=== PATIENT | female | born 1955 | race African-American/Black ===

== ENCOUNTER 2016-10-17 10:09 | Outpatient (CLI) | payer BC ==
--- NOTE | 2016-10-18 07:47 | Mammography Report ---
Bilateral mammogram: Compared to 09/22/15. CAD study utilized. Findings: Bilateral stable breast implants. No microcalcifications mass at the adjacent breast parenchyma. Predominantly fatty breast parenchyma. Impression: Benign findings. Annual followup recommended. BI-RADS CATEGORY: 2 = Benign ACR BI-RADS MAMMOGRAPHIC CODES: 0 = Needs additional imaging evaluation; 1 = Negative; 2 = Benign; 3 = Probably benign; 4 = Suspicious; 5 = Malignant; 6 = Known biopsy-proven malignancy COMMENT: 1. Dense breast tissue, i.e., adenosis, fibrocystic changes, etc., may obscure an underlying neoplasm. 2. Approximately 10% of cancers are not detected with mammography. 3. A negative mammography report should not delay biopsy if a clinically suspicious mass is present.
== END 2016-10-17 10:10 | disposition home or self-care (01) ==
LOC: MAMMO 10:09
PROVIDERS: ATTEND Obstetrics & Gynecology
DX: Z12.31 Encounter for screening mammogram for malignant neoplasm of breast (principal); Z98.82 Breast implant status
CPT/HCPCS: 77067; G0202

== ENCOUNTER 2018-10-23 08:45 | Outpatient (CLI) | payer MEDICARE, OTHER ==
--- NOTE | 2018-10-23 12:02 | Mammography Report ---
BILATERAL DIGITAL AUGMENTED SCREENING MAMMOGRAM with CAD: 10/23/18 08:45:00 CLINICAL: Routine screening. COMPARISON:10/17/16 FINDINGS: Screening views with and without implant displacement demonstrate heterogeneously dense breasts, which may obscures small masses and the breast density is sufficient to limit the sensitivity of mammography. A left asymmetry on the implant displaced CC view requires additional imaging. No architectural distortion or suspicious calcifications. The right breast is negative. Intact subpectoral implants. IMPRESSION: Left asymmetry requiring additional imaging. BI-RADS CATEGORY: 0--Needs Additional Imaging RECOMMENDATION: Recall for a left implant displaced CC spot compression view and an implant displaced lateralmedial view and left breast ultrasound if needed. COMMENT: 1. Dense breast tissue, i.e., adenosis, fibrocystic changes, etc., may obscure an underlying neoplasm. 2. Approximately 10% of cancers are not detected with mammography. 3. A negative mammography report should not delay biopsy if a clinically suspicious mass is present. COMMENT: Patient follow-up letters are generated via our [employer] application.
== END 2018-10-23 08:46 | disposition home or self-care (01) ==
LOC: MAMMO 08:45
PROVIDERS: ATTEND Obstetrics & Gynecology
DX: Z12.31 Encounter for screening mammogram for malignant neoplasm of breast (principal)
CPT/HCPCS: 77067

== ENCOUNTER 2018-11-27 08:13 | Outpatient (CLI) | payer MEDICARE ==
--- NOTE | 2018-11-27 11:49 | Mammography Report ---
LEFT DIGITAL DIAGNOSTIC MAMMOGRAM and LEFT BREAST ULTRASOUND: 11/27/18 08:13:00 CLINICAL: Recalled for asymmetry. COMPARISON:10/23/18 screening FINDINGS: Implant displaced LM and spot compression CC views were obtained. Near-complete effacement of asymmetry on the spot view. The lateral view is negative. Ultrasound of the left breast (including all four quadrants and the retroareolar area) was performed and demonstrated normal fibroglandular structures and an intact breast implant. No mass, cyst or shadowing. IMPRESSION: No mammographic evidence of malignancy and negative left breast ultrasound. BI-RADS CATEGORY: 1 -- Negative RECOMMENDATION: Routine mammographic screening in one year. COMMENT: 1. Dense breast tissue, i.e., adenosis, fibrocystic changes, etc., may obscure an underlying neoplasm. 2. Approximately 10% of cancers are not detected with mammography. 3. A negative mammography report should not delay biopsy if a clinically suspicious mass is present. COMMENT: Patient follow-up letters are generated via our [employer] application.
== END 2018-11-27 08:14 | disposition home or self-care (01) ==
LOC: MAMMO 08:13
PROVIDERS: ATTEND Obstetrics & Gynecology
DX: R92.8 Other abnormal and inconclusive findings on diagnostic imaging of breast (principal)

== ENCOUNTER 2019-10-27 11:11 | Outpatient (CLI) | payer MEDICARE ==
--- NOTE | 2019-10-27 14:08 | Mammography Report ---
DIGITAL SCREENING MAMMOGRAM WITH CAD, 10/27/2019 INDICATION: Routine screening mammography. TECHNIQUE: Digital bilateral 2D mammography was obtained in the craniocaudal and mediolateral obliq ue projections without and with implant displacement. This examination was interpreted with the benef it of Computer-Aided Detection analysis. COMPARISON: 11/27/2018 and 10/23/2018 FINDINGS: Breast Density: The breasts are heterogeneously dense, which may obscure small masses. There is no evidence of dominant mass, suspicious calcifications or architectural distortion in eithe r breast. Bilateral subpectoral implants in place. IMPRESSION: No mammographic evidence of malignancy. Follow up recommendation: Routine yearly BI-RADS Category 2: Benign. A "normal" or negative report should not discourage follow up or biopsy of a clinically significant f inding. A written summary of these findings will be mailed to the patient. The patient will be entered into a mammography reporting system which will generate a reminder letter for the patient's next appointmen t at the appropriate interval. The [employer] recommends yearly mammograms starting at age 40 and continuing as l leslie as a woman is in good health. Breast MRI is recommended for women with an approximate 20-25% or greater lifetime risk of breast cancer, including women with a strong family history of breast or ova justice cancer or who have been treated for Hodgkin's disease. Signer Name: Lamont Marvin MD Signed: 10/27/2019 2:04 PM Workstation Name: [id number]
== END 2019-10-27 11:12 | disposition home or self-care (01) ==
LOC: MAMMO 11:11
PROVIDERS: ATTEND Obstetrics & Gynecology
DX: Z12.31 Encounter for screening mammogram for malignant neoplasm of breast (principal)
CPT/HCPCS: 77067

== ENCOUNTER 2020-04-19 09:23 | Outpatient (CLI) | payer MEDICARE ==
--- NOTE | 2020-04-19 12:06 | Mammography Report ---
BONE DEXA CLINICAL: Postmenopausal osteopenia. TECHNIQUE: 2 site bone DEXA performed on an Hologic scanner. FINDINGS: The average BMD of the lumbar spine L1-L4 is 0.812 g/cm squared with a T score of -2.1 and a Z score of -0.2. The average total BMD of the left hip is 0.736 g/cm squared with a T score of -1.7and a Z score of -0 .4. IMPRESSION: 1. WHO classification: Osteopenia based upon spine measurements. Definitions: BMD equal bone mineral density T score = BMD related to peak bone mass of young adult ([place] expressed an standard deviation) Z score = age-matched BMD expressed in SD World health organization (WHO) diagnostic criteria Normal T score greater than equal to 1 standard deviation Osteopenia T score between -1 and -2.4 standard deviation Osteoporosis T score -2.5 standard deviation or below. Note: BMD is not the only risk factor for fracture; also consider factors such as the patient's age, risk of falling, previous osteoporotic fracture, family history of osteoporotic fractures, current sm oker and low body weight. Z scores are not calculated if greater than 80 years of age. Signer Name: Darell Parker MD Signed: 04/19/2020 12:05 PM Workstation Name: [id number]
== END 2020-04-19 09:24 | disposition home or self-care (01) ==
LOC: MAMMO 09:23
PROVIDERS: ATTEND Obstetrics & Gynecology
DX: Z13.820 Encounter for screening for osteoporosis (principal); M81.0 Age-related osteoporosis without current pathological fracture; N95.1 Menopausal and female climacteric states
CPT/HCPCS: 77080

== ENCOUNTER 2021-02-02 09:33 | Outpatient (CLI) | payer MEDICARE | END 2021-02-02 09:34 | disposition home or self-care (01) | LOC: MAMMO 09:33 | PROVIDERS: ATTEND Obstetrics & Gynecology | DX: Z12.31 Encounter for screening mammogram for malignant neoplasm of breast (principal) | CPT/HCPCS: 77067 ==

== ENCOUNTER 2021-04-30 04:34 | Emergency (ER) | payer MEDICARE ==
[2021-04-30 04:48] VITALS: BP 111/66
--- NOTE | 2021-04-30 07:21 | Emergency Department Report ---
ED Abdominal Pain HPI - General Chief Complaint: Abdominal Pain Stated Complaint: IRREGULAR BOWL MOVEMENT X2 DAYS Time Seen by Provider: 04/30/21 06:42 Source: EMS, certified court/medical interpreter Mode of arrival: Stretcher Limitations: Language Barrier - History of Present Illness Initial Comments: Patient presents with abdominal pain and constipation. For 3 days, she has not been able to have a bowel movement. Family came in today because of this. She has had normal urination. She has the feeling that she needs to have a bowel movement and simply cannot. She reports abdominal cramps associated with this. The cramping is left lower quadrant in nature. There has been no reported fevers or chills. She has had no cough or congestion. There is no history of r ecent travel or trauma. Patient has had no prior symptoms of this nature. She did have a prior surgery secondary to ulcer disease. She does not know if that is contributing. Patient has not noticed blood in the stools leading up to this event. Severity scale (0 -10): 8 - Related Data Previous Rx's Medication Instructions Recorded Last Taken Type Docusate Sodium [Colace] 100 mg PO BID #20 capsule 04/30/21 Unknown Rx Sennosides [Senna] 8.6 mg PO DAILY #10 tablet 04/30/21 Unknown Rx Allergies Allergy/AdvReac Type Severity Reaction Status Date / Time No Known Allergies Allergy Unverified 09/16/14 09:05 ED Review of Systems ROS: Stated complaint: IRREGULAR BOWL MOVEMENT X2 DAYS Other details as noted in HPI Comment: All other systems reviewed and negative Constitutional: denies: fever Eyes: denies: vision change ENT: denies: throat pain Respiratory: denies: cough Cardiovascular: denies: chest pain Endocrine: denies: unexplained weight loss Gastrointestinal: as per HPI Genitourinary: denies: dysuria Musculoskeletal: denies: back pain Skin: denies: rash Neurological: denies: headache Hematological/Lymphatic: denies: easy bruising ED Past Medical Hx - Past Medical History Additional medical history: Ulcer disease - Surgical History Additional Surgical History: Laparotomy for ulcers - Family History Family history: no significant - Medications Home Medications: Home Medications Medication Instructions Recorded Confirmed Last Taken Type Docusate Sodium [Colace] 100 mg PO BID #20 capsule 04/30/21 Unknown Rx Sennosides [Senna] 8.6 mg PO DAILY #10 tablet 04/30/21 Unknown Rx ED Physical Exam - General Limitations: Language Barrier (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 Absent: scleral icterus - ENT ENT exam: Present: normal exam, normal orophraynx - Neck Neck exam: Present: normal inspection. Absent: meningismus - Respiratory Respiratory exam: Present: normal lung sounds bilaterally. Absent: respiratory distress - Cardiovascular Cardiovascular Exam: Present: regular rate, normal rhythm - GI/Abdominal GI/Abdominal exam: Present: soft. Absent: tenderness, guarding, rebound, pulsatile mass - Extremities Exam Extremities exam: Present: normal capillary refill. Absent: calf tenderness - Back Exam Back exam: Absent: CVA tenderness (R), CVA tenderness (L) - Neurological Exam Neurological exam: Present: alert, oriented X3, CN II-XII intact, normal gait. Absent: motor sensory deficit - Psychiatric Psychiatric exam: Present: normal affect, normal mood - Skin Skin exam: Present: warm, dry ED Course Vital Signs 04/30/21 04:40 Temperature 98 F Pulse Rate 80 Respiratory 16 Rate Blood Pressure 111/66 [Left] O2 Sat by Pulse 98 Oximetry - Reevaluation(s) Reevaluation #1: 04/30/21 07:21 X-rays were ordered. Old records reviewed. Reevaluation #2: 04/30/21 09:39 X-rays are noted and the patient was discharged ED Medical Decision Making - Radiology Data Radiology results: report reviewed - Medical Decision Making Patient presents secondary to constipation. She really does not have abdominal tenderness or pain associated with this. There is no peritoneal finding. She has no distention or tympany suggestive of obstructive pattern. There is no radiographic evidence of obstruction or of perforation. Patient does not appear to be toxic. There was reports of bowel movement issues, but no urinary issues. I do not believe this represents referred pain from a UTI. 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 Critical Care Time: No Critical care attestation.: If time is entered above; I have spent that time in minutes in the direct care of this critically ill patient, excluding procedure time. ED Disposition Clinical Impression: Constipation Qualifiers: Constipation type: unspecified constipation type Qualified Code(s): K59.00 - Constipation, unspecified Disposition: HOME / SELF CARE / HOMELESS Is pt being admited?: No Condition: Stable Instructions: Constipation, Adult, Abdominal Pain (ED) Additional Instructions: Have a high-fiber diet. Drink plenty of water. Return for problems. Follow-up with your regular doctor for recheck. Avoid peanut butter and oatmeal. Eat yogurt. Prescriptions: Docusate Sodium [Colace] 100 mg PO BID #20 capsule Sennosides [Senna] 8.6 mg PO DAILY #10 tablet Referrals: PRIMARY CARE, [Primary Care Provider] - 3-5 Days NANCY OLIVARES MD [Staff Physician] - 3-5 Days Print Language: [place]THER[place] IRISH
--- NOTE | 2021-04-30 07:37 | XRay Report ---
ABDOMEN 3 VIEW(S) INDICATION / CLINICAL INFORMATION: Abdominal pain. COMPARISON: None available. FINDINGS: TUBES / LINES: None. BOWEL GAS PATTERN: There is a mild amount of stool in the colon. I see no evidence of bowel obstructi on or mass effect. FREE AIR / EXTRALUMINAL GAS: None seen. ADDITIONAL FINDINGS: There are surgical changes in the central abdomen. CHEST: The heart size and pulmonary vasculature are normal. The lungs are clear. There is old healed fracture deformity of the left mid clavicle. IMPRESSION: No acute abnormality. Signer Name: Paolo Kenny MD Signed: 04/30/2021 7:32 AM Workstation Name: [id number]
[2021-04-30] MEDS ORDERED: MAGNESIUM CITRATE 300 ML ORAL LIQD PO ONE (09:17)
== END 2021-04-30 10:07 | disposition home or self-care (01) ==
LOC: ED 04:34
DX: K59.00 Constipation, unspecified (principal); R10.32 Left lower quadrant pain; Z79.899 Other long term (current) drug therapy
CPT/HCPCS: 74022; 99283